=== PATIENT | female | born 1965 | race Hispanic/Latino ===

== ENCOUNTER 2024-06-27 19:14 | Emergency (ER) | payer OTHER, BC ==
[~2024-06-27] VITALS: Ht 167.6 cm; Wt 64.9 kg
[2024-06-27] MEDS ORDERED: NAPHCON-A EYE D15 ML OPTH (20:57)
[2024-06-27 21:06] VITALS: BP 127/76
== END 2024-06-27 21:06 | disposition home or self-care (01) ==
LOC: ED 19:14
DX: H11.31 Conjunctival hemorrhage, right eye (principal); Z88.8 Allergy status to other drugs, medicaments and biological substances
CPT/HCPCS: 99283